=== PATIENT | male | born 1955 | race American Indian/Alaskan Native ===

== ENCOUNTER 2017-03-22 07:17 | Day surgery (SDC) | payer MEDICARE, MEDICAID ==
[2015-08-26 10:44] VITALS: PULSE 84
[2017-03-14 12:09] VITALS: BMI 16.9
--- NOTE | 2017-03-21 18:01 | HP ---
REASON FOR ADMISSION: Left heart cath, possible angioplasty, abnormal stress test. BRIEF CLINICAL HISTORY: This is a 62-year-old male with mechanical mitral valve replacement in 1993. Before, the patient had a pig valve in 1992, repeat is in 1993 [facility] mechanical valve, on Coumad in. Was complaining of dyspnea on exertion, chest pain on exertion so patient underwent a stress giovana t which was abnormal so patient was scheduled to have cardiac cath, possible angioplasty. PAST HISTORY: Significant for hypertension, hyperlipidemia, open heart surgery, status post pig valv e in 1992, status post mechanical valve in 1993, history of paroxysmal atrial fibrillation, history o f hypertension, history of open heart surgery. PREVIOUS CARDIAC WORKUP: As follows: The patient had a stress test ____ that was abnormal myocardia l perfusion study, partially reversible distal anteroseptal apical defect suspicious for ischemia, ej ection fraction 55%. When compared from the previous stress test 06/12/2014, previously noted fixed defect appears slightly improved and partially reversible in the current study. The patient had echo cardiography done on 02/14/2015 that shows normal aortic root, normal bioprosthetic mitral valve pros thesis, ejection fraction 40%, moderate tricuspid regurgitation, pulmonary insufficiency, mild pulmon milton insufficiency, trace mitral regurgitation, ejection fraction 40%. Whereas by stress test, ejecti on fraction reported 50%. The patient had a MUGA scan done on 07/30/2014 that shows ejection fractio n 57%. Prior to that, patient had echocardiography done in [facility] 06/12/2014, status post MV repair, ejection fraction reported at 35% to 40%. SOCIAL HISTORY: Denies smoking. Denies any history of alcohol abuse. History of some substance abu se in the past, used to smoke crack but quit it now. REVIEW OF SYSTEMS: As per HPI. CURRENT MEDICATIONS: The patient is taking Coumadin 5 mg, last dose on . Last dose of Loven ox day before yesterday. Verapamil 180 mg, potassium chloride 20 mEq, Lasix 20, enalapril 5 mg, digo joselyn 0.25, ____ and codeine 1 tablet daily. REVIEW OF SYSTEMS: As per HPI. PHYSICAL EXAMINATION: As follows: VITAL SIGNS: Temperature afebrile, heart rate ____, blood pressure 109/76. HEENT: PERRLA, intact. NECK: Supple. No carotid bruits. No thyromegaly. CHEST: Clear to auscultation. HEART: S1 and S2 regular. ABDOMEN: Soft. EXTREMITIES: Clubbing and cyanosis negative. BLOOD WORKUP: No recent blood workup is available. IMPRESSION: Abnormal stress test, history of open heart surgery twice, status post mitral valve repl acement in 1996, repeat ____ mechanical in 1993, history of substance abuse, paroxysmal atrial fibril lation, hypertension, hyperlipidemia, cardiomyopathy, abnormal stress test. RECOMMENDATION: We will do the cardiac catheterization. Further recommendation after the cardiac ca theterization. We will follow with you. We will load with aspirin and Plavix. Repeat the blood wor kup. Thank you, Dr. Rogers, for providing us the opportunity in taking care of patient. We will follow w ith you. Danuta Spears MD cc: [id number] TT: 03/21/2017 18:00:25 sn
[2017-03-22 07:49] LABS: ADD MANUAL DIFF? NO
[2017-03-22 07:55] LABS: BASO # 0.01 K/mm3 (0.0-2.0); BASO % 0.2 % (0.0-3.0); EOS # 0.2 (0.0-0.7); EOS % 3.6 % (1.5-5.0); GRAN % 53.2 % (50.0-68.0); HEMATOCRIT 39.5 % (42.0-52.0); LYMPH # 1.6 (1.2-3.4); LYMPH % 27.5 % (22.0-35.0); MEAN CELL VOLUME 95.4 fL (80.0-105.0); MEAN CORPUSCULAR HEMOGLOBIN 32.6 pg (25.0-35.0); MEAN CORPUSCULAR HGB CONC 34.2 g/dl (31.0-37.0); MEAN PLATELET VOLUME 9.3 fl (7.0-11.0); MONO # 0.9 (0.1-0.6); MONO % 15.5 % (1.0-6.0); PLATELET COUNT 248 10^3/uL (120.0-450.0); RED CELL DISTRIBUTION WIDTH 12.7 % (11.5-14.5); WHITE BLOOD COUNT 5.8 10^3/ul (4.5-11.0)
[2017-03-22 08:05] LABS: BLOOD UREA NITROGEN 17 mg/dL (7-21); CALCIUM 9.7 mg/dL (8.4-10.5); CARBON DIOXIDE 29 mmol/L (21-33); CHLORIDE 103 mmol/L (98-107); CHOLESTEROL 167 mg/dL (130-200); GFR AFRICAN-AMERICAN > 60; GLUCOSE,RANDOM 91 mg/dL (70-110); INR 1.07 (0.93-1.08); PARTIAL THROMBOPLASTIN TIME 28.4 Seconds (23.7-30.8); POTASSIUM 4.1 mmol/L (3.6-5.0); SODIUM 141 mmol/L (132-148)
[2017-03-22 08:20] VITALS: TEMP 98.4
[2017-03-22] MEDS ORDERED: Lidocaine 2% Inj (20ml) ONE (10:19)
[2017-03-22] MEDS ORDERED: Iohexol 350mgl/ml 50 ML ONE (10:25)
[2017-03-22] MEDS ORDERED: Nitroglycerin 50mg in D5W 50 MG/250 ML BOTTLE IV ONE (10:28)
[2017-03-22] MEDS ORDERED: Midazolam 2 MG/2 ML VIAL ONE (10:31)
[2017-03-22] MEDS ORDERED: Bacitracin 500 Units/gm Oint Foilpak UD TOP ONE (11:21)
[2017-03-22] MEDS ORDERED: Sodium Chloride 0.9% 1,000 ML IV SCH (11:30)
[2017-03-22 12:09] VITALS: RESP 22; O2SAT 99
[2017-03-22 13:54] VITALS: BP 132/70; PULSE 53
[2017-03-22] MEDS ORDERED: Bacitracin 500 Units/gm Oint Foilpak UD ONE (13:58)
--- NOTE | 2017-03-22 17:45 | CARD ---
APPROVED REPORT Procedure(s) performed: Left Heart Catheterization HISTORY The patient is a 62 year-old male with a history of : most recent EF: 50%. (EF Method: RADIONUCLIDE), previous diagnostic cath, hypertension , previous valve surgery (The previous valve surgery date was ), S/p MVR, Pig valve in 1992 , followed By [facility] in 1993, hx of A fib. on Coumadin. INDICATION The indication(s) include : positive stress test. CASE TECHNIQUE The patient was brought electively to the Cardiac Catheterization Laboratory in a fasting state and was prepped and draped in a sterile manner. The left wrist was infiltrated with 2% Lidocaine subcutaneous anesthesia. A 6 Fr Glidesheath (Radial) sheath was inserted into the left radial artery without difficulty. Coronary angiography was performed using coronary diagnostic catheters. The left coronary system was accessed and visualized with a Diagnostic ,5 Fr JL 4 catheter. The right coronary system was accessed and visualized with a Diagnostic ,5 Fr JR 4 catheter. The left ventricle was accessed and visualized with a 5 Fr Pigtail 145 (Angled) catheter. Left ventricular/Aortic Valve gradient assessed on pullback. Left ventriculogram was performed in SIDDIQUI projection. The patient tolerated the procedure well and there were no complications associated with the procedure. Vessel Analysis The patient's coronary anatomy is right dominant. The left main coronary artery is a large size vessel with intimal irregularities and without significant stenosis. The left main trifurcates to the left anterior descending, circumflex, and ramus. The left anterior descending artery is a large size vessel with diffuse calcification noted throughout this vessel and without significant stenosis. The first diagonal branch is a medium size vessel with diffuse calcification noted throughout this vessel and without significant stenosis. The circumflex artery is a medium size vessel with diffuse calcification noted throughout this vessel and without significant stenosis. There is a 55% stenosis in the very distal segment. The first obtuse marginal branch is a small size vessel with diffuse calcification noted throughout this vessel and without significant stenosis. The ramus intermedius artery is a medium size vessel with diffuse calcification noted throughout this vessel and without significant stenosis. The right coronary artery is a large size vessel with intimal irregularities and without significant stenosis. The right posterior descending artery is a medium size vessel with diffuse calcification noted throughout this vessel and without significant stenosis. The right posterolateral branch is a medium size vessel with diffuse calcification noted throughout this vessel and without significant stenosis. Left Ventricle The left ventricle is normal in size with normal contractility. There was no cardiomyopathy. The left ventricular ejection fraction is estimated to be 55%. The left ventricular end diastolic pressure is 15 mmHg. There was no gradient across the aortic valve upon pullback. Conclusion Non Obstructive CAD Limited ti Very Distal CX 55% Preserved LV Fx, EF-55%, EDP-15 mmof hg. Small Coronary Fistula noted Drainig Distal LAD and Distal R PDa to LV Cavity ( Hemodynamically in significant). Marjorie functioning [facility] [employer] Valve at Mitral position noted on Fluro. Recommendations Aggressive Medical TherapyCardiac Risk Reduction Program Coumadin 10 mg po today, 10 mg tomorrow followe by 5 mg daily and PT/INR on [place] with Dr. Rogers Lovenox 50 mg S/Q twice daily for four doses starting from 8:00 am tomorrow Arrangement has been made in Heme clinic for Sq Inj of Lovenox. CC; Drs. Rogers/ Aide
[2017-03-23] MEDS ORDERED: Enoxaparin 60 mg Syringe SC SCH (08:00)
== END 2017-03-22 15:25 | disposition home or self-care (01) ==
LOC: CATH 07:17
PROVIDERS: ATTEND Internal Medicine Cardiovascular Disease
DX: I25.10 Atherosclerotic heart disease of native coronary artery without angina pectoris (principal); R94.39 Abnormal result of other cardiovascular function study; E78.5 Hyperlipidemia, unspecified; I10 Essential (primary) hypertension; I48.0 Paroxysmal atrial fibrillation; I34.0 Nonrheumatic mitral (valve) insufficiency; Z79.01 Long term (current) use of anticoagulants; Z95.2 Presence of prosthetic heart valve; Z87.898 Personal history of other specified conditions
CPT/HCPCS: 36415; 80048; 80061; 85025; 85610; 85730; 86850; 86900; 93458; 99152; C1769; C1887 ×2; J1644 ×2; J2250; J3010; J7040 ×2; Q9967 ×2

== ENCOUNTER 2017-04-25 14:14 | Emergency (ER) | payer MEDICARE, MEDICAID ==
[2017-04-25 14:15] VITALS: PULSE 84
[2017-04-25 14:33] VITALS: RESP 18
[2017-04-25 14:42] VITALS: BMI 17.0
--- NOTE | 2017-04-25 14:51 | ED PDOC ---
Arrival/HPI - General Chief Complaint: Chest Pain Time Seen by Provider: 04/25/17 14:28 Historian: Patient - History of Present Illness Narrative History of Present Illness (Text): 04/25/17 14:50 Mr. Gonzales is a 62 year old male with past medical history of mechanical valve replacement, Hypertension, hyperlipidemia, paroxysmal atrial fibrillation, CABG in 1992 and 1993 who presents with chest pain starting this morning. Patient reports he began experiencing a sharp chest pain starting at his left shoulder and radiating down into his left chest. He denies any radiation of the pain through to his back. Patient states the pain is sharp, stabbing pain, constant, 9/10. He denies nausea, vomiting, shortness of breath. Pt reports the pain is worse with laying on his left side. Of note the patient has had a abnormal stress test on 03/06/[address] [facility]. 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 He sought a 2nd opinion and had a heart cath this past month which was negative for acute changes. Past Medical History - Provider Review Nursing Documentation Reviewed: Yes - Infectious Disease Hx of Infectious Diseases: None - Tetanus Immunization Tetanus Immunization: Unknown - Cardiac Hx Pacemaker: No - Pulmonary Hx Respiratory Disorders: Yes (SMOKES 1993 QUIT) Other/Comment: ex smoker - Neurological Hx Paralysis: No - HEENT Hx HEENT Disorder: No (WEARS RX GLASSES) - Renal Hx Renal Disorder: No - Endocrine/Metabolic Hx Endocrine Disorders: No - Hematological/Oncological Hx Blood Transfusions: Yes Hx Blood Transfusion Reaction: Yes (HEP C) - Integumentary Hx Dermatological Disorder: No (SCAR MID CHEST FROM HEART SURGERY) - Musculoskeletal/Rheumatological Hx Musculoskeletal Disorders: Yes (ANKLE SPRAIN,FX FINGER) - Gastrointestinal Hx Gastrointestinal Disorders: Yes (ANAL CA) Hx Pancreatitis: Yes - Genitourinary/Gynecological Hx Genitourinary Disorders: No - Psychiatric Hx Emotional Abuse: No Hx Physical Abuse: No Hx Substance Use: Yes (COCAINE USE .SNORT QUIT 1993) - Surgical History Hx Coronary Artery Bypass Graft: Yes - Anesthesia Hx Anesthesia Reactions: No Hx Malignant Hyperthermia: No - Suicidal Assessment Feels Threatened In Home Enviroment: No Family/Social History - Physician Review Nursing Documentation Reviewed: Yes Family/Social History: Unknown Family HX Smoking Status: Former Smoker Hx Alcohol Use: Yes (ALCOHOLIC .QUIT 1993) Hx Substance Use: Yes (COCAINE USE .SNORT QUIT 1993) Hx Substance Use Treatment: No Allergies/Home Meds Allergies/Adverse Reactions: Allergies No Known Allergies Allergy (Verified 04/25/17 15:08) Home Medications: Home Meds Medication Instructions Recorded Confirmed Verapamil [Calan SR Tab] 180 mg PO DAILY 04/02/12 03/22/17 Acetaminophen/Oxycodone Hydr 1 tab PO Q6H PRN 02/28/14 03/22/17 [Percocet 10/325 mg Tab] Digoxin [Lanoxin] 0.25 mg PO DAILY 03/14/17 03/22/17 Enalapril Maleate [Vasotec] 5 mg PO DAILY 03/14/17 03/22/17 Furosemide [Lasix] 20 mg PO DAILY 03/14/17 03/22/17 Potassium Chloride [Klor-Con M20] 20 meq PO DAILY 03/14/17 03/22/17 Warfarin [Coumadin] 5 mg PO DAILY 03/14/17 03/22/17 Enoxaparin [Lovenox] 60 mg SQ Q12 03/22/17 03/22/17 Review of Systems - Physician Review All systems were reviewed & negative as marked: Yes - Review of Systems Respiratory: absent: SOB, Cough Cardiovascular: Chest Pain. absent: Palpitations, Edema, Calf Pain, Orthopnea, Syncope Gastrointestinal: absent: Abdominal Pain Physical Exam Vital Signs Reviewed: Yes Vital Signs Temp Pulse Resp BP Pulse Ox 04/25/17 17:19 98.2 F 59 L 18 138/73 100 04/25/17 14:15 98.1 F 54 L 18 127/68 97 Temperature: Afebrile Blood Pressure: Normal Respiratory Rate: Normal Appearance: Positive for: Well-Appearing Pain Distress: None Mental Status: Positive for: Alert and Oriented X 3 - Systems Exam Head: Present: Atraumatic, Normocephalic Pupils: Present: PERRL Extroacular Muscles: Present: EOMI Conjunctiva: Present: Icteric Mouth: Present: Moist Mucous Membranes Neck: Present: Normal Range of Motion Respiratory/Chest: Present: Clear to Auscultation, Good Air Exchange, Other ( midline scar 2/2 cabg). No: Respiratory Distress, Accessory Muscle Use Cardiovascular: Present: Regular Rate and Rhythm, Murmurs (short diastolic murmur), Normal S1, S2 Abdomen: Present: Normal Bowel Sounds. No: Tenderness, Distention, Peritoneal Signs Upper Extremity: Present: Normal Inspection. No: Cyanosis, Edema Lower Extremity: Present: Normal Inspection. No: Edema Neurological: Present: GCS=15, CN II-XII Intact, Speech Normal Skin: Present: Warm, Dry, Normal Color. No: Rashes Psychiatric: Present: Alert, Oriented x 3, Normal Insight, Normal Concentration Medical Decision Making ED Course and Treatment: 04/25/17 15:06 Impression: Mr. Gonzales is a 62 year old male with an extensive cardiac history who presents with chest pain on going for the past 8 hours. Differential Diagnosis included but are not limited to: - Musculoskeletal strain - Atypical chest pain Plan: - CBC, CMP, Cardiac enzymes - CXR, EKG - oxycodone - Reassess and disposition Progress Notes: EKG: Ordered, reviewed, and independently interpreted the EKG. Rate : 53BPM Rhythm : NSR Interpretation : No ST-segment elevations or depressions, no T-wave inversions, normal intervals. Chest x-ray COMPARISON:08/20/2015 FINDINGS: LUNGS:No active pulmonary disease. PLEURA:No significant pleural effusion identified, no pneumothorax apparent. CARDIOVASCULAR:Normal. OSSEOUS STRUCTURES:Sternal wires VISUALIZED UPPER ABDOMEN:Normal. OTHER FINDINGS:None. IMPRESSION:No active disease. 04/25/17 16:13 - Discussed case with Dr. Rogers and she recommended pain medication and if chest pain resolved agreeable to discharge home with follow up in office - Lab Interpretations Lab Results: 04/25/17 14:39 04/25/17 14:39 Lab Results 04/25/17 14:39: PT 27.5 H, INR 2.55 H, APTT 39.2 H 04/25/17 14:39: Sodium 138, Potassium 4.0, Chloride 101, Carbon Dioxide 31, Anion Gap 10, BUN 13, Creatinine 0.9, Est GFR ( Amer) > 60, Est GFR (Non- Af Amer) > 60, Random Glucose 84, Calcium 9.1, Magnesium 1.6 L, Total Bilirubin 0.9, AST 38, ALT 33, Alkaline Phosphatase 54, Lactate Dehydrogenase 896 H, Total Creatine Kinase 150, Troponin I < 0.01, NT-Pro-B Natriuret Pep 492 H, Total Protein 7.5, Albumin 4.0, Globulin 3.5, Albumin/Globulin Ratio 1.1 04/25/17 14:39: WBC 6.7, RBC 3.75, Hgb 12.0 L, Hct 35.6 L, MCV 94.9, MCH 32.0, MCHC 33.7, RDW 12.6, Plt Count 221, MPV 9.0, Gran % 56.0, Lymph % (Auto) 27.1, [place] % (Auto) 12.8 H, Eos % (Auto) 3.9, Baso % (Auto) 0.2, Gran # 3.73, Lymph # 1.8, [place] # 0.9 H, Eos # 0.3, Baso # 0.01 - RAD Interpretation Radiology Orders: 04/25/17 14:38 CHEST PORTABLE [RAD] Stat Machine Folder: Radiologist - EKG Interpretation Interpreted by ED Physician: Yes Type: 12 lead EKG - Medication Orders Current Medication Orders: Discontinued Medications Aspirin (Aspirin) 325 mg PO STAT STA Stop: 04/25/17 14:38 Last Admin: 04/25/17 15:45 Dose: 325 mg Oxycodone HCl (Oxycodone Immediate Release Tab) 5 mg PO STAT STA Stop: 04/25/17 16:11 Last Admin: 04/25/17 16:24 Dose: 5 mg - PA / TRAFFIC COUNTER / Resident Statement MD/DO has reviewed & agrees with the documentation as recorded. MD/DO has examined the patient and agrees with the treatment plan. Disposition/Present on Arrival - Present on Arrival Any Indicators Present on Arrival: No History of DVT/PE: No History of Uncontrolled Diabetes: No Urinary Catheter: No History Surgical Site Infection Following: None - Disposition Have Diagnosis and Disposition been Completed?: Yes Diagnosis: Musculoskeletal strain Disposition Time: 17:27 Patient Plan: Discharge Condition: GOOD Additional Instructions: Mr. Gonzales, thank you for letting us take care of you today. Your provider was Dr. Banks. You were treated for musculoskeletal strain. The emergency medical care you received today was directed at your acute symptoms. If you were prescribed any medication, please fill it and take as directed. It may take several days for your symptoms to resolve. Return to the Emergency Department if your symptoms worsen, do not improve, or if you have any other problems. Please contact your doctor or call one of the physicians/clinics you have been referred to that are listed on the Patient Visit Information form that is included in your discharge packet. Bring any paperwork you were given at discharge with you along with any medications you are taking to your follow up visit. Our treatment cannot replace ongoing medical care by a primary care provider (PCP) outside of the emergency department. Thank you for allowing the [facility] team to be part of your care today. Follow up with primary care physician Referrals: [facility] Profile Req, [Non-Staff] - Follow up with primary
[2017-04-25 14:55] LABS: BASO # 0.01 K/mm3 (0.0-2.0); BASO % 0.2 % (0.0-3.0); EOS # 0.3 (0.0-0.7); EOS % 3.9 % (1.5-5.0); GRAN # 3.73 (1.4-6.5); LYMPH # 1.8 (1.2-3.4); LYMPH % 27.1 % (22.0-35.0); MEAN CELL VOLUME 94.9 fL (80.0-105.0); MEAN CORPUSCULAR HGB CONC 33.7 g/dl (31.0-37.0); MONO # 0.9 (0.1-0.6); MONO % 12.8 % (1.0-6.0); PLATELET COUNT 221 10^3/uL (120.0-450.0); RBC 3.75 10^6/uL (3.5-6.1); RED CELL DISTRIBUTION WIDTH 12.6 % (11.5-14.5); WHITE BLOOD COUNT 6.7 10^3/ul (4.5-11.0)
[2017-04-25 15:05] LABS: INR 2.55 (0.93-1.08); PARTIAL THROMBOPLASTIN TIME 39.2 Seconds (23.7-30.8); PROTHROMBIN TIME 27.5 Seconds (9.9-11.8)
[2017-04-25 15:06] LABS: ALB/GLOB RATIO 1.1 (1.1-1.8); ALT/SGPT 33 U/L (7-56); AST/SGOT 38 U/L (15-59); BLOOD UREA NITROGEN 13 mg/dL (7-21); CALCIUM 9.1 mg/dL (8.4-10.5); GFR AFRICAN-AMERICAN > 60; GFR NON-AFRICAN AMERICAN > 60; MAGNESIUM 1.6 mg/dL (1.7-2.2)
--- NOTE | 2017-04-25 15:15 | RAD ---
HISTORY: chest pain COMPARISON: 08/20/2015 FINDINGS: LUNGS: No active pulmonary disease. PLEURA: No significant pleural effusion identified, no pneumothorax apparent. CARDIOVASCULAR: Normal. OSSEOUS STRUCTURES: Sternal wires VISUALIZED UPPER ABDOMEN: Normal. OTHER FINDINGS: None. IMPRESSION: No active disease.
[2017-04-25 15:17] LABS: B-TYPE NATRIURETIC PEPTIDE 492 pg/mL (0-450)
[2017-04-25 15:18] LABS: TROPONIN I < 0.01 ng/mL
[2017-04-25] MEDS ORDERED: oxyCODONE 5 mg Immediate Release Tab PO STA (16:10)
--- NOTE | 2017-04-25 17:20 | CARD ---
APPROVED REPORT EKG Measurement Heart [id number] MD 160P [id number] <Conclusion> Sinus bradycardia Otherwise normal ECG
[2017-04-25 17:23] VITALS: BP 138/73; TEMP 98.2
[2017-04-25 17:35] VITALS: PULSE 58; O2SAT 98
== END 2017-04-25 17:36 | disposition home or self-care (01) ==
LOC: ED 14:14
DX: S29.011A Strain of muscle and tendon of front wall of thorax, initial encounter (principal); X58.XXXA Exposure to other specified factors, initial encounter; E78.5 Hyperlipidemia, unspecified; I10 Essential (primary) hypertension; I48.0 Paroxysmal atrial fibrillation

== ENCOUNTER 2017-11-18 10:00 | Emergency (ER) | payer MEDICARE, MEDICAID ==
[2017-11-18 10:01] VITALS: PULSE 84
[2017-11-18 11:52] VITALS: BP 130/74; PULSE 73; RESP 18; TEMP 98.2; O2SAT 100; BMI 17.1
--- NOTE | 2017-11-18 12:22 | ED PDOC ---
Arrival/HPI - General Chief Complaint: Lower Extremity Problem/Injury Time Seen by Provider: 11/18/17 12:05 Historian: Patient - History of Present Illness Narrative History of Present Illness (Text): 11/18/17 12:19 62 year old male, with past medical history of mechanical valve replacement, hypertension, hyperlipidemia, paroxysmal A-fib, and CABG, presents to the Emergency department for evaluation of right foot s/p trauma this morning. Patient informs twisting his foot following rolled inversion and injury to right foot. Patient is worried that mechanical hardware in his foot may have been affected and requests medical evaluation. Patient denies any discomfort or bruising to his right foot. Patient denies any other somatic complaints. Patient denies any fever, chills, nausea, vomiting, diarrhea, abdominal pain, chest pain, shortness of breath or any other complaints. PMD: Dr. Rogers Time/Duration: Prior to Arrival Symptom Onset: Gradual Symptom Course: Unchanged Activities at Onset: Light Context: Home Past Medical History - Provider Review Nursing Documentation Reviewed: Yes - Infectious Disease Hx of Infectious Diseases: None - Tetanus Immunization Tetanus Immunization: Unknown - Cardiac Hx Congestive Heart Failure: Yes Hx Pacemaker: No - Pulmonary Hx Respiratory Disorders: Yes (SMOKES 1993 QUIT) Other/Comment: ex smoker - Neurological Hx Paralysis: No - HEENT Hx HEENT Disorder: No (WEARS RX GLASSES) - Renal Hx Renal Disorder: No - Endocrine/Metabolic Hx Endocrine Disorders: No - Hematological/Oncological Hx Blood Transfusions: Yes Hx Blood Transfusion Reaction: Yes (HEP C) - Integumentary Hx Dermatological Disorder: No (SCAR MID CHEST FROM HEART SURGERY) - Musculoskeletal/Rheumatological Hx Musculoskeletal Disorders: Yes (ANKLE SPRAIN,FX FINGER) - Gastrointestinal Hx Gastrointestinal Disorders: Yes (ANAL CA) Hx Pancreatitis: Yes - Genitourinary/Gynecological Hx Genitourinary Disorders: No - Psychiatric Hx Emotional Abuse: No Hx Physical Abuse: No Hx Substance Use: Yes (COCAINE USE .SNORT QUIT 1993) - Surgical History Hx Coronary Artery Bypass Graft: Yes Other/Comment: Abdias placed to Rt. lower extremity/foot. - Anesthesia Hx Anesthesia Reactions: No Hx Malignant Hyperthermia: No - Suicidal Assessment Feels Threatened In Home Enviroment: No Family/Social History - Physician Review Nursing Documentation Reviewed: Yes Family/Social History: Unknown Family HX Smoking Status: Former Smoker Hx Alcohol Use: Yes (ALCOHOLIC .QUIT 1993) Hx Substance Use: Yes (COCAINE USE .SNORT QUIT 1993) Hx Substance Use Treatment: No Allergies/Home Meds Allergies/Adverse Reactions: Allergies No Known Allergies Allergy (Verified 11/18/17 11:56) Home Medications: Home Meds Medication Instructions Recorded Confirmed Verapamil [Calan SR Tab] 180 mg PO DAILY 04/02/12 11/18/17 Acetaminophen/Oxycodone Hydr 1 tab PO Q6H PRN 02/28/14 11/18/17 [Percocet 10/325 mg Tab] Digoxin [Lanoxin] 0.25 mg PO DAILY 03/14/17 11/18/17 Enalapril Maleate [Vasotec] 5 mg PO DAILY 03/14/17 11/18/17 Furosemide [Lasix] 20 mg PO DAILY 03/14/17 11/18/17 Potassium Chloride [Klor-Con M20] 20 meq PO DAILY 03/14/17 11/18/17 Warfarin [Coumadin] 5 mg PO DAILY 03/14/17 11/18/17 Enoxaparin [Lovenox] 60 mg SQ Q12 03/22/17 11/18/17 Review of Systems - Physician Review All systems were reviewed & negative as marked: Yes - Review of Systems Constitutional: Normal. absent: Fevers Eyes: Normal ENT: Normal Respiratory: Normal. absent: SOB Cardiovascular: Normal. absent: Chest Pain Gastrointestinal: Normal. absent: Abdominal Pain, Diarrhea, Nausea, Vomiting Genitourinary Male: Normal Musculoskeletal: Other (evaluation of right foot s/p trauma) Skin: Normal Neurological: Normal Endocrine: Normal Hemo/Lymphatic: Normal Psychiatric: Normal Physical Exam Vital Signs Reviewed: Yes Vital Signs Temp Pulse Resp BP Pulse Ox 11/18/17 11:11 98.2 F 73 18 130/74 100 Temperature: Afebrile Blood Pressure: Normal Pulse: Regular Respiratory Rate: Normal Appearance: Positive for: Well-Appearing, Non-Toxic, Comfortable Pain Distress: None Mental Status: Positive for: Alert and Oriented X 3 - Systems Exam Head: Present: Atraumatic, Normocephalic Pupils: Present: PERRL Extroacular Muscles: Present: EOMI Conjunctiva: Present: Normal Neck: Present: Normal Range of Motion Respiratory/Chest: Present: Clear to Auscultation, Good Air Exchange. No: Respiratory Distress, Accessory Muscle Use Cardiovascular: Present: Regular Rate and Rhythm, Normal S1, S2. No: Murmurs Abdomen: Present: Normal Bowel Sounds. No: Tenderness, Distention, Peritoneal Signs Back: Present: Normal Inspection Upper Extremity: Present: Normal Inspection. No: Cyanosis, Edema Lower Extremity: Present: Normal Inspection, NORMAL PULSES, Normal ROM. No: Edema, Cyanosis, Tenderness, Swelling, Erythema, Deformity Neurological: Present: GCS=15, CN II-XII Intact, Speech Normal Skin: Present: Warm, Dry, Normal Color. No: Rashes, Abrasion Psychiatric: Present: Alert, Oriented x 3, Normal Insight, Normal Concentration Medical Decision Making ED Course and Treatment: 11/18/17 12:24 Impression: 62 year old male presents to the Emergency department for evaluation of right foot. Plan: -- X-ray right foot -- Reassess and disposition Progress Notes: 11/18/17 14:00 X-ray of right foot reviewed, shows negative findings. Will discharge patient home with instructions. - RAD Interpretation Radiology Orders: 11/18/17 12:07 FOOT RIGHT 3 VIEWS ROUTINE [RAD] Stat - PA / PROGRAM ASSISTANT / Resident Statement MD/DO has reviewed & agrees with the documentation as recorded. - Scribe Statement The provider has reviewed the documentation as recorded by the Scribe Trinity Moulton. All medical record entries made by the Scribe were at my direction and personally dictated by me. I have reviewed the chart and agree that the record accurately reflects my personal performance of the history, physical exam, medical decision making, and the department course for this patient. I have also personally directed, reviewed, and agree with the discharge instructions and disposition. Disposition/Present on Arrival - Present on Arrival Any Indicators Present on Arrival: No History of DVT/PE: No History of Uncontrolled Diabetes: No Urinary Catheter: No History of Decub. Ulcer: No History Surgical Site Infection Following: None - Disposition Have Diagnosis and Disposition been Completed?: Yes Diagnosis: Foot sprain Disposition: HOME/ ROUTINE Disposition Time: 13:57 Patient Plan: Discharge Patient Problems: Current Active Problems Problem Status Onset Foot sprain Acute Condition: GOOD Discharge Instructions (ExitCare): Foot Sprain (DC) Additional Instructions: Mr Gonzales- So sorry this took so long today. Xray shows the hardware is where it belongs and there is no new fracture. Tylenol is ok for pain. Return to us if worse or new problems. Follow up with your doctor next week. Best- Dr. John Thomas Forms: [employer] ([place])
--- NOTE | 2017-11-18 14:37 | RAD ---
PROCEDURE: Right Foot Radiographs. HISTORY: inversion injury, previous surgery COMPARISON: Comparison made with radiographs right foot dated 08/14/2015 FINDINGS: BONES: Re- demonstrated is ORIF changes distal aspect right 5th metatarsal with in situ fixation plate. Localized well-circumscribed defect within the lateral margin of the distal aspect of the metatarsal of uncertain etiology though could be due to chronic resorption changes. Hardware appears intact without evidence of loosening or infection. . No evidence of acute displaced fracture nor dislocation. Osseous structures otherwise appear intact. JOINTS: Degenerative changes PIP joint 2nd digit again noted. Hammertoe deformities of the 3rd and 4th digits preclude complete/adequate evaluation of the distal phalanges SOFT TISSUES: Mild vascular calcifications. OTHER FINDINGS: None. IMPRESSION: No evidence of acute displaced fracture nor dislocation. ORIF changes distal right 5th metatarsal. There is a well-circumscribed corticated defect along the lateral margin distal aspect of the 5th metatarsal subjacent to the fixation plate which could be due to chronic resorption changes. Clinical correlation recommended. No evidence of acute displaced fracture nor dislocation. DJD PIP joint 2nd digit.
== END 2017-11-18 14:37 | disposition home or self-care (01) ==
LOC: ED 10:00
DX: S93.601A Unspecified sprain of right foot, initial encounter (principal); W50.2XXA Accidental twist by another person, initial encounter; Y92.009 Unspecified place in unspecified non-institutional (private) residence as the place of occurrence of the external cause; I48.0 Paroxysmal atrial fibrillation; E78.5 Hyperlipidemia, unspecified; I10 Essential (primary) hypertension; Z87.891 Personal history of nicotine dependence

== ENCOUNTER 2018-09-03 11:33 | Emergency (ER) | payer MEDICARE, MEDICAID ==
[2018-09-03 11:34] VITALS: PULSE 84
[2018-09-03 12:15] VITALS: TEMP 98.1; BMI 17.2
--- NOTE | 2018-09-03 12:23 | ED PDOC ---
Arrival/HPI - General Chief Complaint: Lower Extremity Problem/Injury Historian: Patient - History of Present Illness Narrative History of Present Illness (Text): 09/03/18 12:20 63 y/o male, nkda, c/o rt. lateral ankle/foot pain s/p inversion injury x 2 d ays. Pt. stated that he was walking, accidentally inversion twisted the rt. foot and ankle, request to have xray, able to walk and bear weight, no numbness or tingling, no rash, no night sweat, no other medical or psychological complaints. Past Medical History - Provider Review Nursing Documentation Reviewed: Yes - Infectious Disease Hx of Infectious Diseases: None - Tetanus Immunization Tetanus Immunization: Unknown - Cardiac Hx Congestive Heart Failure: Yes Hx Pacemaker: No - Pulmonary Hx Respiratory Disorders: Yes (SMOKES 1993 QUIT) Other/Comment: ex smoker - Neurological Hx Paralysis: No - HEENT Hx HEENT Disorder: No (WEARS RX GLASSES) - Renal Hx Renal Disorder: No - Endocrine/Metabolic Hx Endocrine Disorders: No - Hematological/Oncological Hx Blood Transfusions: Yes Hx Blood Transfusion Reaction: Yes (HEP C) - Integumentary Hx Dermatological Disorder: No (SCAR MID CHEST FROM HEART SURGERY) - Musculoskeletal/Rheumatological Hx Musculoskeletal Disorders: Yes (ANKLE SPRAIN,FX FINGER) - Gastrointestinal Hx Gastrointestinal Disorders: Yes (ANAL CA) Hx Pancreatitis: Yes - Genitourinary/Gynecological Hx Genitourinary Disorders: No - Psychiatric Hx Emotional Abuse: No Hx Physical Abuse: No 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 lower extremity/foot. - Anesthesia Hx Anesthesia Reactions: No Hx Malignant Hyperthermia: No - Suicidal Assessment Feels Threatened In Home Enviroment: No Family/Social History - Physician Review Nursing Documentation Reviewed: Yes Family/Social History: Unknown Family HX Smoking Status: Former Smoker Hx Alcohol Use: Yes (ALCOHOLIC .QUIT 1993) Hx Substance Use: Yes (COCAINE USE .SNORT QUIT 1993) Hx Substance Use Treatment: No Allergies/Home Meds Allergies/Adverse Reactions: Allergies No Known Allergies Allergy (Verified 09/03/18 12:18) Home Medications: Home Meds Medication Instructions Recorded Confirmed Verapamil [Calan SR Tab] 180 mg PO DAILY 04/02/12 11/18/17 Acetaminophen/Oxycodone Hydr 1 tab PO Q6H PRN 02/28/14 11/18/17 [Percocet 10/325 mg Tab] Digoxin [Lanoxin] 0.25 mg PO DAILY 03/14/17 11/18/17 Enalapril Maleate [Vasotec] 5 mg PO DAILY 03/14/17 11/18/17 Furosemide [Lasix] 20 mg PO DAILY 03/14/17 11/18/17 Potassium Chloride [Klor-Con M20] 20 meq PO DAILY 03/14/17 11/18/17 Warfarin [Coumadin] 5 mg PO DAILY 03/14/17 11/18/17 Enoxaparin [Lovenox] 60 mg SQ Q12 03/22/17 11/18/17 Review of Systems - Review of Systems Constitutional: absent: Fatigue, Fevers Eyes: absent: Vision Changes ENT: absent: Hearing Changes Respiratory: absent: SOB, Cough Cardiovascular: absent: Chest Pain Gastrointestinal: absent: Abdominal Pain, Nausea, Vomiting Musculoskeletal: Arthralgias, Myalgias. absent: Back Pain Skin: absent: Rash, Pruritis Neurological: absent: Headache, Dizziness Psychiatric: absent: Anxiety, Depression, Suicidal Ideation Physical Exam Vital Signs Reviewed: Yes Vital Signs Temp Pulse Resp BP Pulse Ox 09/03/18 12:13 98.1 F 75 17 154/119 H 99 Temperature: Afebrile Blood Pressure: Hypertensive Pulse: Regular Respiratory Rate: Normal Appearance: Positive for: Well-Appearing, Non-Toxic, Comfortable Pain Distress: Mild Mental Status: Positive for: Alert and Oriented X 3 - Systems Exam Head: Present: Atraumatic, Normocephalic Pupils: Present: PERRL Extroacular Muscles: Present: EOMI Conjunctiva: Present: Normal Mouth: Present: Moist Mucous Membranes Neck: Present: Normal Range of Motion Respiratory/Chest: Present: Clear to Auscultation, Good Air Exchange. No: Respiratory Distress, Accessory Muscle Use Cardiovascular: Present: Regular Rate and Rhythm, Normal S1, S2. No: Murmurs Abdomen: No: Tenderness, Distention, Peritoneal Signs Back: Present: Normal Inspection Upper Extremity: Present: Normal Inspection. No: Cyanosis, Edema Lower Extremity: Present: Normal Inspection, Other (Rt. ankle/foot: +ttp on the lateral foot mildly, no swelling, negative lizandro and steven signs, FROM without limitation, sensation intact, motor 5/5, +DPPT pulses, capillary refill < 2 seconds, neurovascular intact. ). No: Edema Neurological: Present: GCS=15, CN II-XII Intact, Speech Normal Skin: Present: Warm, Dry, Normal Color. No: Rashes Psychiatric: Present: Alert, Oriented x 3, Normal Insight, Normal Concentration Medical Decision Making ED Course and Treatment: 09/03/18 12:22 -Xrays -Tylenol -Observe and reassess 09/03/18 13:32 -Rt. foot xray ER wet read: no fracture or dislocation. -Rt. ankle xray ER wet read: no fracture or dislocation. -Cliff wrap applied with neurovascular intact, refused crutches but request cane, ordered for him. -pt. feels better, will discharge home. -Discharge home with tylenol, cliff wrap, cane, follow up with your own pmd and orthopedic/plastic welder within 2 days, return to the ER for any new or worsening signs or symptoms. - RAD Interpretation Radiology Orders: 09/03/18 12:18 ANKLE RIGHT 3 VIEWS ROUTINE [RAD] Stat FOOT RIGHT 3 VIEWS ROUTINE [RAD] Stat -Rt. foot xray Date of service: 09/03/2018 PROCEDURE: Right Foot Radiographs. HISTORY: inversion injury COMPARISON: 11/18/2017 FINDINGS: BONES: No acute fracture. Previous internal fixation 5th metatarsal JOINTS: Normal. SOFT TISSUES: Normal. OTHER FINDINGS: None. IMPRESSION: No acute fracture ------ ------ -Rt. ankle xray Date of service: 09/03/2018 PROCEDURE: Right Ankle Radiographs. HISTORY: inversion injury COMPARISON: None available. FINDINGS: BONES: Normal. No fracture. JOINTS: Normal. No osteoarthritis. Ankle mortise maintained. Talar dome intact SOFT TISSUES: Normal. OTHER FINDINGS: None. IMPRESSION: Normal right ankle radiographs. Liquor Runner: Radiologist - Medication Orders Current Medication Orders: Acetaminophen (Tylenol 325mg Tab) 650 mg PO STAT STA Stop: 09/03/18 12:19 - PA / HAT BRUSHER MACHINE / Resident Statement MD/DO has reviewed & agrees with the documentation as recorded. Disposition/Present on Arrival - Present on Arrival Any Indicators Present on Arrival: No History of DVT/PE: No History of Uncontrolled Diabetes: No Urinary Catheter: No History of Decub. Ulcer: No History Surgical Site Infection Following: None - Disposition Have Diagnosis and Disposition been Completed?: Yes Diagnosis: Foot injury, Foot pain Disposition: HOME/ ROUTINE Disposition Time: 13:45 Patient Plan: Discharge Patient Problems: Current Active Problems Problem Status Onset Foot injury Acute Foot pain Acute Condition: GOOD Additional Instructions: -Discharge home with tylenol, cliff wrap, cane, follow up with your own pmd and orthopedic/plastic welder within 2 days, return to the ER for any new or worsening signs or symptoms. Prescriptions: Acetaminophen [Pain Reliever] 500 mg PO QID PRN #30 tablet PRN Reason: Other Referrals: Ernesto Rogers MD [Primary Care Provider] - Follow up with primary Buck Harrison DPM [Staff Provider] - Follow up with primary Tylor Sim III, MD [Medical Doctor] - Follow up with primary [facility] [place] - Follow up with primary Forms: [employer] (Lithuanian), WORK NOTE
--- NOTE | 2018-09-03 13:45 | RAD ---
Date of service: 09/03/2018 PROCEDURE: Right Foot Radiographs. HISTORY: inversion injury COMPARISON: 11/18/2017 FINDINGS: BONES: No acute fracture. Previous internal fixation 5th metatarsal JOINTS: Normal. SOFT TISSUES: Normal. OTHER FINDINGS: None. IMPRESSION: No acute fracture
--- NOTE | 2018-09-03 13:46 | RAD ---
Date of service: 09/03/2018 PROCEDURE: Right Ankle Radiographs. HISTORY: inversion injury COMPARISON: None available. FINDINGS: BONES: Normal. No fracture. JOINTS: Normal. No osteoarthritis. Ankle mortise maintained. Talar dome intact SOFT TISSUES: Normal. OTHER FINDINGS: None. IMPRESSION: Normal right ankle radiographs.
[2018-09-03 13:59] VITALS: BP 129/68; PULSE 69; RESP 18; O2SAT 100
== END 2018-09-03 14:20 | disposition home or self-care (01) ==
LOC: ED 11:33
DX: S99.921A Unspecified injury of right foot, initial encounter (principal); X50.1XXA Overexertion from prolonged static or awkward postures, initial encounter; Y93.01 Activity, walking, marching and hiking; M79.671 Pain in right foot; I50.9 Heart failure, unspecified

== ENCOUNTER 2018-12-12 10:33 | Emergency (ER) | payer MEDICARE, MEDICAID | END 2018-12-12 15:05 | disposition home or self-care (01) | LOC: ED 10:33 ==

== ENCOUNTER 2019-01-30 09:09 | Observation (INO) | payer MEDICARE, MEDICAID ==
[2019-01-30 09:09] VITALS: BMI 17.1
--- NOTE | 2019-01-30 09:52 | ED PDOC ---
Arrival/HPI - General Chief Complaint: Back Pain Historian: Patient - History of Present Illness Narrative History of Present Illness (Text): 01/30/19 09:52 63 y/o male, pmh including htn/hld/a.fibb on coumadin/mechanical heart valve 1993 and pig valve 1992, nkda, c/o rt. lower back and rt. lower quadrant abdominal pain x 4 days with no fall or trauma. Pt. stated that he woke up with the rt. lower back pain and radiating to the RLQ region, no tearing sensation, no nausea/vomiting, no diarrhea, no chest pain or palpitation, no fever or chills, no headache or night sweat, no rash, no other medical or psychological complaints. Past Medical History - Provider Review Nursing Documentation Reviewed: Yes - Infectious Disease Hx of Infectious Diseases: None - Tetanus Immunization Tetanus Immunization: Unknown - Cardiac Hx Cardiac Disorders: Yes Hx Congestive Heart Failure: Yes - Pulmonary Hx Respiratory Disorders: Yes Other/Comment: ex smoker - Neurological Hx Paralysis: No - HEENT Hx HEENT Disorder: (WEARS RX GLASSES) - Renal Hx Renal Disorder: No - Endocrine/Metabolic Hx Endocrine Disorders: No - Hematological/Oncological Hx Blood Disorders: Yes Hx Blood Transfusions: Yes Hx Blood Transfusion Reaction: Yes Hx Cancer: Yes Hx Hepatitis C: Yes - Integumentary Hx Dermatological Disorder: No - Musculoskeletal/Rheumatological Hx Musculoskeletal Disorders: Yes (ANKLE SPRAIN) Hx Fractures: Yes - Gastrointestinal Hx Gastrointestinal Disorders: Yes Hx Pancreatitis: Yes - Genitourinary/Gynecological Hx Genitourinary Disorders: No - Psychiatric Hx Psychophysiologic Disorder: No Hx Substance Use: Yes (COCAINE QUIT) - Surgical History Hx Coronary Artery Bypass Graft: Yes Hx Orthopedic Surgery: Yes Hx Valve Replacement: Yes Other/Comment: Abdias placed to Rt. lower extremity/foot. - Anesthesia Hx Anesthesia Reactions: No Hx Malignant Hyperthermia: No - Suicidal Assessment Feels Threatened In Home Enviroment: No Family/Social History - Physician Review Nursing Documentation Reviewed: Yes Family/Social History: Unknown Family HX Smoking Status: Former Smoker Hx Alcohol Use: Yes (ALCOHOLIC QUIT) Hx Substance Use: Yes (COCAINE QUIT) Hx Substance Use Treatment: No Allergies/Home Meds Allergies/Adverse Reactions: Allergies No Known Allergies Allergy (Verified 01/30/19 09:18) Home Medications: Home Meds Medication Instructions Recorded Confirmed Verapamil [Calan SR Tab] 180 mg PO DAILY 04/02/12 01/30/19 Digoxin [Lanoxin] 0.25 mg PO DAILY 03/14/17 01/30/19 Enalapril Maleate [Vasotec] 5 mg PO DAILY 03/14/17 01/30/19 Furosemide [Lasix] 20 mg PO DAILY 03/14/17 01/30/19 Potassium Chloride [Klor-Con M20] 20 meq PO DAILY 03/14/17 01/30/19 Warfarin [Coumadin] 5 mg PO DAILY 03/14/17 01/30/19 Review of Systems - Review of Systems Constitutional: absent: Fatigue, Fevers Eyes: absent: Vision Changes ENT: absent: Hearing Changes Respiratory: absent: SOB, Cough Cardiovascular: absent: Chest Pain Gastrointestinal: Abdominal Pain. absent: Nausea, Vomiting Musculoskeletal: Back Pain. absent: Arthralgias, Neck Pain, Joint Swelling, Myalgias Skin: absent: Rash, Pruritis Neurological: absent: Headache, Dizziness Psychiatric: absent: Anxiety, Depression, Suicidal Ideation Physical Exam Vital Signs Reviewed: Yes Temperature: Afebrile Blood Pressure: Normal Pulse: Bradycardic Respiratory Rate: Normal Appearance: Positive for: Well-Appearing, Non-Toxic, Comfortable Pain Distress: Moderate Mental Status: Positive for: Alert and Oriented X 3 - Systems Exam Head: Present: Atraumatic, Normocephalic Pupils: Present: PERRL Extroacular Muscles: Present: EOMI Conjunctiva: Present: Normal Mouth: Present: Moist Mucous Membranes Neck: Present: Normal Range of Motion Respiratory/Chest: Present: Clear to Auscultation, Good Air Exchange. No: Respiratory Distress, Accessory Muscle Use Cardiovascular: Present: Regular Rate and Rhythm, Normal S1, S2. No: Murmurs Abdomen: Present: Tenderness (RLQ), Normal Bowel Sounds. No: Distention, Peritoneal Signs, Rebound, Guarding, McBurney's Point Tender, Rovsing's Sign Present, Scars Back: Present: Normal Inspection, Other (Thoracic to LS region: no midline tenderness or step off, no cva tenderness, FROM without limitation but pain with lateral movement, sensation intact, motor 5/5, SLR test negative. ). No: CVA Tenderness, Midline Tenderness, Paraspinal Tenderness, Pain with Leg Raise, Decubitus Ulcer Upper Extremity: Present: Normal Inspection, Normal ROM, NORMAL PULSES, Neurovascularly Intact. No: Cyanosis, Edema, Tenderness, Swelling, Deformity, Norm 2-Pt Discrimination Lower Extremity: Present: Normal Inspection. No: Edema Neurological: Present: GCS=15, CN II-XII Intact, Speech Normal, Motor Func G rossly Intact, Normal Cerebellar Funct, Gait Normal, Memory Normal Skin: Present: Warm, Dry, Normal Color. No: Rashes Psychiatric: Present: Alert, Oriented x 3, Normal Insight, Normal Concentration Medical Decision Making ED Course and Treatment: 01/30/19 10:04 -Labs -CT abdomen and pelvis -IVF/morphine -Observe and reassess 01/30/19 14:24 -Labs show no acute findings -INR 2.93 -UA show no UTI but there is hematuria -CT abdomen and pelvis: There fluid and fecal material in the ascending colon. There is mild distention of the remainder of the colon. This could be secondary to colonic ileus. The small bowel is normal in caliber. No evidence of appendicitis. -Pt. is still in pain, uncomfortable, discussed and spoke to Dr. Rogers about labs/radiology and the patient's pain level, she recommend observation and general surgery consult Dr. Lim. -Pt. agreed to be admitted for observation - RAD Interpretation Radiology Orders: -CT abdomen and pelvis: Date of service: 01/30/2019 PROCEDURE: CT Abdomen and Pelvis with contrast HISTORY: rt. lower back and rt. LQ pain x 4 days COMPARISON: 12/12/2018 TECHNIQUE: Contrast dose: 100 cc of Omni 350 Radiation dose: Total exam DLP = 212.65 mGy-cm. This CT exam was performed using one or more of the following dose reduction techniques: Automated exposure control, adjustment of the mA and/or kV according to patient size, and/or use of iterative reconstruction technique. FINDINGS: LOWER THORAX: Unremarkable. LIVER: Unremarkable. No gross lesion or ductal dilatation. GALLBLADDER AND BILE DUCTS: Unremarkable. PANCREAS: Unremarkable. No gross lesion or ductal dilatation. SPLEEN: Unremarkable. ADRENALS: Unremarkable. No mass. KIDNEYS AND URETERS: Unremarkable. No hydronephrosis. No solid mass. VASCULATURE: Unremarkable. No aortic aneurysm. Aortic and iliac calcification BOWEL: There fluid and fecal material in the ascending colon. There is mild distention of the remainder of the colon. This could be secondary to colonic ileus. The small bowel is normal in caliber. APPENDIX: Normal appendix. PERITONEUM: Unremarkable. No free fluid. No free air. LYMPH NODES: Unremarkable. No enlarged lymph nodes. BLADDER: Unremarkable. REPRODUCTIVE: Unremarkable. BONES: No acute fracture. OTHER FINDINGS: None. IMPRESSION: There fluid and fecal material in the ascending colon. There is mild distention of the remainder of the colon. This could be secondary to colonic ileus. The small bowel is normal in caliber. No evidence of appendicitis. Optimization Specialist: Radiologist - PA / THERAPEUTIC SALES SPECIALIST / Resident Statement MD/DO has reviewed & agrees with the documentation as recorded. Disposition/Present on Arrival - Present on Arrival Any Indicators Present on Arrival: No History of DVT/PE: No History of Uncontrolled Diabetes: No Urinary Catheter: No History of Decub. Ulcer: No History Surgical Site Infection Following: None - Disposition Have Diagnosis and Disposition been Completed?: Yes Diagnosis: Abdominal pain, Ileus, unspecified Disposition: HOSPITALIZED Disposition Time: 14:26 Patient Plan: Admission, Observation Condition: STABLE Forms: [employer] (Arabic)
[2019-01-30] MEDS ORDERED: Morphine 4 mg/ml ISec IVP STA (09:58)
[2019-01-30] MEDS ORDERED: Sodium Chloride 0.9% 500 ML IV STA (10:00)
[2019-01-30 10:51] LABS: BASO # 0.01 K/mm3 (0.0-2.0); BASO % 0.1 % (0.0-3.0); EOS # 0.2 (0.0-0.7); EOS % 2.2 % (1.5-5.0); HEMOGLOBIN 12.5 g/dL (14.0-18.0); LYMPH # 1.1 (1.2-3.4); LYMPH % 15.8 % (22.0-35.0); MEAN CELL VOLUME 96.7 fl (80.0-105.0); MEAN CORPUSCULAR HEMOGLOBIN 32.1 pg (25.0-35.0); MEAN CORPUSCULAR HGB CONC 33.2 g/dl (31.0-37.0); MEAN PLATELET VOLUME 9.3 fl (7.0-11.0); MONO % 13.7 % (1.0-6.0); RBC 3.9 10^6/uL (3.5-6.1)
[2019-01-30 10:54] LABS: PH,URINE 5.5 (4.7-8.0); URINE APPEARANCE CLEAR (CLEAR); URINE BILIRUBIN NEGATIVE (NEGATIVE); URINE BLOOD MODERATE (NEGATIVE); URINE COLOR YELLOW (YELLOW); URINE GLUCOSE (UA) NEGATIVE (NEGATIVE); URINE LEUKOCYTE ESTERASE NEGATIVE Leu/uL (NEGATIVE); URINE PROTEIN NEGATIVE mg/dL (<30 mg/dL); URINE UROBILINOGEN 0.2 E.U./dL (<1 E.U./dL)
[2019-01-30 10:58] LABS: INR 2.93; PARTIAL THROMBOPLASTIN TIME 51.5 Seconds (26.9-38.3); PROTHROMBIN TIME 33.1 SECONDS (9.4-12.5)
[2019-01-30 11:04] LABS: ALB/GLOB RATIO 1.2 (1.1-1.8); ALBUMIN 4.1 g/dL (3.0-4.8); ALT/SGPT 14 U/L (7-56); AST/SGOT 38 U/L (17-59); BLOOD UREA NITROGEN 13 mg/dL (7-21); CALCIUM 9.3 mg/dL (8.4-10.5); GFR NON-AFRICAN AMERICAN > 60
[2019-01-30 11:05] LABS: URINE BACTERIA FEW /hpf; URINE RBC 20 - 25 /hpf (0-2)
[2019-01-30] MEDS ORDERED: Iohexol 350 MG/100 ML VIAL ONE (11:13)
--- NOTE | 2019-01-30 12:24 | CT ---
Date of service: 01/30/2019 PROCEDURE: CT Abdomen and Pelvis with contrast HISTORY: rt. lower back and rt. LQ pain x 4 days COMPARISON: 12/12/2018 TECHNIQUE: Contrast dose: 100 cc of Omni 350 Radiation dose: Total exam DLP = 212.65 mGy-cm. This CT exam was performed using one or more of the following dose reduction techniques: Automated exposure control, adjustment of the mA and/or kV according to patient size, and/or use of iterative reconstruction technique. FINDINGS: LOWER THORAX: Unremarkable. LIVER: Unremarkable. No gross lesion or ductal dilatation. GALLBLADDER AND BILE DUCTS: Unremarkable. PANCREAS: Unremarkable. No gross lesion or ductal dilatation. SPLEEN: Unremarkable. ADRENALS: Unremarkable. No mass. KIDNEYS AND URETERS: Unremarkable. No hydronephrosis. No solid mass. VASCULATURE: Unremarkable. No aortic aneurysm. Aortic and iliac calcification BOWEL: There fluid and fecal material in the ascending colon. There is mild distention of the remainder of the colon. This could be secondary to colonic ileus. The small bowel is normal in caliber. APPENDIX: Normal appendix. PERITONEUM: Unremarkable. No free fluid. No free air. LYMPH NODES: Unremarkable. No enlarged lymph nodes. BLADDER: Unremarkable. REPRODUCTIVE: Unremarkable. BONES: No acute fracture. OTHER FINDINGS: None. IMPRESSION: There fluid and fecal material in the ascending colon. There is mild distention of the remainder of the colon. This could be secondary to colonic ileus. The small bowel is normal in caliber. No evidence of appendicitis.
[2019-01-30] MEDS: Sodium Chloride 0.9% 1,000 ML IV SCH (15:05)
--- NOTE | 2019-01-30 15:25 | CP.PCM.CON ---
<Florence Underwood - Last Filed: 01/30/19 17:48> History of Present Illness - History of Present Illness History of Present Illness: General Surgery Dr. Wiseman 63 y/o M w/ PMHx CHF, CAD, Afib, presents to the ED c/o abd pain. Pt admits to abd pain that started Sunday. Pt admits to similar pain in the past but never this severe. Pt reports pain starts in his low back and radiates around to his RLQ and right groin. In the past, pain was relieved w/ passing gas, however, pt reports recent constipation/obstipation w/ decreased flatus. Pain currently made worse and relieved w/ certain movements. Pain is intermittent and described as sharp, tightening, twisting pain. Pt also admits to recent increased urgency and frequency of urination but denies F/C, N/V, reflux, anorexia, diarrhea, dysuria. PMHx: see above, Hep C, anemia, polysubstance abuse, pancreatitis Meds: reviewed in chart NKDA PSHx: CAGB, heart valve replacement x2, RLE abdias SHx: prior cocaine, tobacco, EtOH use FHx: noncontributory Review of Systems - Review of Systems All systems: reviewed and no additional remarkable complaints except (see HPI) Past Patient History - Infectious Disease Hx of Infectious Diseases: None - Tetanus Immunizations Tetanus Immunization: Unknown - Past Social History Smoking Status: Former Smoker - CARDIAC Hx Cardiac Disorders: Yes Hx Congestive Heart Failure: Yes - PULMONARY Hx Respiratory Disorders: Yes Other/Comment: ex smoker - NEUROLOGICAL Hx Paralysis: No - HEENT Hx HEENT Problems: (WEARS RX GLASSES) - RENAL Hx Chronic Kidney Disease: No - ENDOCRINE/METABOLIC Hx Endocrine Disorders: No - HEMATOLOGICAL/ONCOLOGICAL Hx Blood Disorders: Yes Hx Blood Transfusions: Yes Hx Blood Transfusion Reaction: Yes Hx Cancer: Yes Hx Hepatitis C: Yes - INTEGUMENTARY Hx Dermatological Problems: No - MUSCULOSKELETAL/RHEUMATOLOGICAL Hx Musculoskeletal Disorders: Yes (ANKLE SPRAIN) Hx Fractures: Yes - GASTROINTESTINAL Hx Gastrointestinal Disorders: Yes Hx Pancreatitis: Yes - GENITOURINARY/GYNECOLOGICAL Hx Genitourinary Disorders: No - PSYCHIATRIC Hx Psychophysiologic Disorder: No Hx Substance Use: Yes (COCAINE QUIT) - SURGICAL HISTORY Hx Coronary Artery Bypass Graft: Yes Hx Orthopedic Surgery: Yes Hx Valve Replacement: Yes Other/Comment: Abdias placed to Rt. lower extremity/foot. - ANESTHESIA Hx Anesthesia Reactions: No Hx Malignant Hyperthermia: No Meds Allergies/Adverse Reactions: Allergies Allergy/AdvReac Type Severity Reaction Status Date / Time No Known Allergies Allergy Verified 01/30/19 09:18 - Medications Medications: Current Medications Sodium Chloride (Sodium Chloride 0.9%) 1,000 mls @ 100 mls/hr IV .Q10H [facility] Last Admin: 01/30/19 15:05 Dose: 100 mls/hr Physical Exam - Constitutional Appears: Non-toxic, No Acute Distress - Head Exam Head Exam: NORMAL INSPECTION - Eye Exam Eye Exam: Normal appearance - ENT Exam ENT Exam: Mucous Membranes Moist - Respiratory Exam Respiratory Exam: NORMAL BREATHING PATTERN. absent: Accessory Muscle Use, Respiratory Distress - Cardiovascular Exam Cardiovascular Exam: absent: Bradycardia, Tachycardia - GI/Abdominal Exam GI & Abdominal Exam: Soft, Tenderness (minimal TTP B/L lower ). absent: Distended, Firm, Guarding, Hernia, Rebound, Rigid - Extremities Exam Extremities exam: Positive for: normal inspection - Back Exam Back exam: paraspinal tenderness (Right). absent: CVA tenderness (L), CVA tenderness (R) - Neurological Exam Neurological exam: Alert, Oriented x3 - Psychiatric Exam Psychiatric exam: Normal Affect, Normal Mood - Skin Skin Exam: Dry, Intact, Normal Color, Warm Results - Vital Signs Recent Vital Signs: Last Vital Signs Temp 98.5 F 01/30/19 09:49 Pulse 59 L 01/30/19 14:53 Resp 18 01/30/19 14:53 BP 130/64 01/30/19 14:53 Pulse Ox 100 01/30/19 14:53 - Labs Result Diagrams: 01/30/19 10:10 01/30/19 10:10 Labs: Laboratory Results - last 24 hr 01/30/19 01/30/19 01/30/19 10:10 10:10 10:10 WBC 7.0 RBC 3.90 Hgb 12.5 L Hct 37.7 L MCV 96.7 MCH 32.1 MCHC 33.2 RDW 13.0 Plt Count 233 MPV 9.3 Neut % (Auto) 68.2 H Lymph % (Auto) 15.8 L Sanborn % (Auto) 13.7 H Eos % (Auto) 2.2 Baso % (Auto) 0.1 Lymph # (Auto) 1.1 L Sanborn # (Auto) 1.0 H Eos # (Auto) 0.2 Baso # (Auto) 0.01 Absolute Neuts (auto) 4.74 PT 33.1 H INR 2.93 APTT 51.5 H Sodium Potassium Chloride Carbon Dioxide Anion Gap BUN Creatinine Est GFR ( Amer) Est GFR (Non-Af Amer) Random Glucose Calcium Total Bilirubin AST ALT Alkaline Phosphatase Total Protein Albumin Globulin Albumin/Globulin Ratio Urine Color Yellow Urine Appearance Clear Urine pH 5.5 Ur Specific Barnhart 1.020 Urine Protein Negative Urine Glucose (UA) Negative Urine Ketones Negative Urine Blood Moderate H Urine Nitrate Negative Urine Bilirubin Negative Urine Urobilinogen 0.2 Ur Leukocyte Esterase Negative Urine RBC 20 - 25 H Urine WBC 1 - 3 Ur Epithelial Cells None Urine Bacteria Few 01/30/19 10:10 WBC RBC Hgb Hct MCV MCH MCHC RDW Plt Count MPV Neut % (Auto) Lymph % (Auto) Sanborn % (Auto) Eos % (Auto) Baso % (Auto) Lymph # (Auto) Sanborn # (Auto) Eos # (Auto) Baso # (Auto) Absolute Neuts (auto) PT INR APTT Sodium 139 Potassium 4.4 Chloride 101 Carbon Dioxide 34 H Anion Gap 9 L BUN 13 Creatinine 0.7 L Est GFR ( Amer) > 60 Est GFR (Non-Af Amer) > 60 Random Glucose 73 Calcium 9.3 Total Bilirubin 0.7 AST 38 ALT 14 Alkaline Phosphatase 48 Total Protein 7.5 Albumin 4.1 Globulin 3.4 Albumin/Globulin Ratio 1.2 Urine Color Urine Appearance Urine pH Ur Specific Barnhart Urine Protein Urine Glucose (UA) Urine Ketones Urine Blood Urine Nitrate Urine Bilirubin Urine Urobilinogen Ur Leukocyte Esterase Urine RBC Urine WBC Ur Epithelial Cells Urine Bacteria - Imaging and Cardiology CT scan - abdomen Status: Image reviewed by me, Report reviewed by me Assessment & Plan - Assessment and Plan (Free Text) Assessment: 63 y/o M w/ abd discomfort likely related to constipation though also concerning for nephrolithaisis Plan: - advance diet as tolerated - dulcolax LA - PO Miralax - monitor bowel fxn - consider stool cultures if concerned for infections etiology - UA w/ micro for potential stones - pt sees Katerine/Tony for urology PPx --> consider consultation if kidney stones - pain management - PT/OT for back pain Pt discussed w/ Dr. Bowen Underwood PGY3 <Tyolr Wiseman - Last Filed: 02/02/19 16:15> Results - Vital Signs Recent Vital Signs: Last Vital Signs Temp 98.1 F 02/01/19 06:00 Pulse 57 L 02/01/19 06:00 Resp 18 02/01/19 06:00 BP 130/69 02/01/19 06:00 Pulse Ox 97 02/01/19 06:00 - Labs Result Diagrams: 01/31/19 07:00 01/31/19 07:00 Assessment & Plan - Assessment and Plan (Free Text) Plan: Dx Abd pain constipation 2ndry to L2 Radiculopathy Coumadin prevents LESI Epidural/Cardiac valve prevents MRI Rx SSE/MgCitrate-progress diet/No surgery This consult done under my direct supervision Eli Wiseman MD FACS
[2019-01-30] MEDS ORDERED: HYDROmorphone 1 mg/ml ISec IVP PRN (17:45)
[2019-01-30] MEDS ORDERED: Dextrose 5%/0.9% NS 1,000 ML IV SCH (18:00)
[2019-01-30] MEDS ORDERED: POLYETHYLENE GLYCOL 3350 17 GM/Dose PACKET PO ONE (18:03)
[2019-01-30] MEDS: HYDROmorphone 0.5 mg/0.5 ml ISec IVP PRN ×2 (18:21→23:18)
[2019-01-30] MEDS: Dextrose 5%/0.9% NS 1,000 ML IV SCH (18:57)
--- NOTE | 2019-01-31 01:50 | HP ---
DATE OF EXAM: 01/30/2019 HISTORY OF PRESENT ILLNESS: The patient is 63 years old, came to emergency room because of increasing abdominal pain. Pain started around Sunday, but it has gotten worse since then. Initially started in the lower back, then started to radiate towards his right lower quadrant area. Pain is sharp, intermittent, gets worse with certain movements, but did not have any nausea or vomiting. No fever, no chills. PAST MEDICAL HISTORY: Significant for; 1. Mitral valve replacement twice and he has mechanical valve, for that reason he is on anticoagulant. 2. History of hepatitis C. 3. History of pancreatitis in the past. 4. Chronic degenerative disc disease on oral narcotics. SOCIAL HISTORY: He is single. He used to use illicit drugs in the past, but quit many many years ago, since he had heart surgeries. ALLERGIES: NOT ALLERGIC TO ANY MEDICATION. MEDICATION AT HOME: He is on Enalapril 5 mg daily, digoxin 0.25 mg daily, clonidine 5 mg daily, Verapamil 180 mg daily, potassium and Lasix. PHYSICAL EXAMINATION GENERAL: He is awake and alert, able to communicate. VITAL SIGNS: He is afebrile. Pulse 59, respiration 18, blood pressure 130/64. LUNGS: Bilateral fair airflow. No rhonchi or crackle. HEART: S1, S2 audible. ABDOMEN: Slightly distended, complaint of pain upon palpation, does have a discomfort in the right lower quadrant area. NEUROLOGIC: He is awake and alert, able to communicate. LABORATORY DATA: WBC 7, hemoglobin 12.5, hematocrit 37, platelets of 33. PT 33.1, INR 2.93. Chemistry; sodium 139, potassium 4.4, chloride 101, CO2 of 34, BUN 13, creatinine 0.7, blood sugar of 73. Urine shows moderate blood, rbc's 20 to 23, wbc's 1 to 3, Had CT scan of the abdomen and pelvis done; shows the patient with fecal matter in the ascending colon, mild distension of the remainder of the colon, possible colonic ileus. No evidence of appendicitis. ASSESSMENT AND PLAN: 1. Abdominal discomfort, etiology unclear. He had probably constipation since he is on narcotics. 2. Hematuria, rule out nephrolithiasis. 3. Status post mitral valve replacement. PLAN: We will give him gentle laxative. Surgical consult has been requested. We will follow up the patient in a.m. Ernesto Rogers MD [facility] # [id number]
[2019-01-31] MEDS: HYDROmorphone 0.5 mg/0.5 ml ISec IVP PRN ×3 (04:46→21:16)
[2019-01-31] MEDS: Dextrose 5%/0.9% NS 1,000 ML IV SCH ×2 (05:34→17:14)
[2019-01-31 07:24] LABS: BASO # 0.01 K/mm3 (0.0-2.0); BASO % 0.2 % (0.0-3.0); EOS # 0.2 (0.0-0.7); EOS % 3.2 % (1.5-5.0); HEMOGLOBIN 12.4 g/dL (14.0-18.0); LYMPH # 1.1 (1.2-3.4); LYMPH % 17.3 % (22.0-35.0); MEAN CELL VOLUME 96.4 fl (80.0-105.0); MEAN CORPUSCULAR HGB CONC 33.2 g/dl (31.0-37.0); MEAN PLATELET VOLUME 8.9 fl (7.0-11.0); MONO # 1.1 (0.1-0.6); MONO % 17.1 % (1.0-6.0); RBC 3.87 10^6/uL (3.5-6.1); RED CELL DISTRIBUTION WIDTH 12.8 % (11.5-14.5); WHITE BLOOD COUNT 6.5 10^3/uL (4.5-11.0)
[2019-01-31 07:41] LABS: PROTHROMBIN TIME 41.6 SECONDS (9.4-12.5)
[2019-01-31 07:44] LABS: INR 3.68
[2019-01-31 07:45] LABS: ALB/GLOB RATIO 1.1 (1.1-1.8); ALBUMIN 3.8 g/dL (3.0-4.8); ALT/SGPT 18 U/L (7-56); AST/SGOT 35 U/L (17-59); BLOOD UREA NITROGEN 10 mg/dL (7-21); CALCIUM 9.1 mg/dL (8.4-10.5); GFR NON-AFRICAN AMERICAN > 60
[2019-01-31] MEDS ORDERED: Magnesium Citrate Oral SOL (300 ml) PO ONE (08:14)
--- NOTE | 2019-01-31 09:05 | CP.PCM.PN ---
Subjective - Date & Time of Evaluation Date of Evaluation: 01/31/19 Time of Evaluation: 06:45 - Subjective Subjective: General Surgery Progress Note for Dr. Bowen Cortez, PGY1 Patient seen and examined at bedside this morning. No acute events reported overnight. Patient denies any bowel movement overnight. Endorses abdominal pain is worse with movement. Denies fevers, nausea, vomiting and headaches. Objective - Vital Signs/Intake and Output Vital Signs (last 24 hours): Temp Pulse Resp BP Pulse Ox 98.2 F 64 18 102/66 98 01/31/19 06:00 01/31/19 06:00 01/31/19 06:00 01/31/19 06:00 01/31/19 06:00 Intake and Output: 01/31/19 01/31/19 06:59 18:59 Intake Total 180 Balance 180 - Medications Medications: Current Medications Digoxin (Lanoxin) 0.25 mg PO DAILY [facility] Hydromorphone HCl (Dilaudid) 0.5 mg IVP Q4H PRN PRN Reason: Pain, moderate (4-7) Last Admin: 01/31/19 04:46 Dose: 0.5 mg Sodium Chloride (Sodium Chloride 0.9%) 1,000 mls @ 100 mls/hr IV .Q10H [facility] Last Admin: 01/30/19 15:05 Dose: 100 mls/hr Dextrose/Sodium Chloride (Dextrose 5%/0.9% Ns 1000 Ml) 1,000 mls @ 100 mls/hr IV .Q10H [facility] Last Admin: 01/31/19 05:34 Dose: 100 mls/hr Ketorolac Tromethamine (Toradol) 30 mg IVP Q6 [facility] Stop: 02/05/19 18:07 Lisinopril (Zestril) 5 mg PO DAILY [facility] Ondansetron HCl (Zofran Inj) 4 mg IVP Q6H PRN PRN Reason: Nausea/Vomiting Polyethylene Glycol (Miralax) 17 gm PO DAILY [facility] Verapamil HCl (Calan Sr Tab) 180 mg PO DAILY [facility] Warfarin Sodium (Coumadin) 5 mg PO 1800 [facility]; Protocol - Labs Labs: 01/31/19 07:00 01/31/19 07:00 PT 41.6 SECONDS (9.4-12.5) H 01/31/19 07:00 INR 3.68 H* 01/31/19 07:00 APTT 51.5 Seconds (26.9-38.3) H 01/30/19 10:10 Physical Exam - Constitutional Appears: Non-toxic, No Acute Distress - Head Exam Head Exam: NORMAL INSPECTION - Eye Exam Eye Exam: Normal appearance - ENT Exam ENT Exam: Mucous Membranes Moist - Respiratory Exam Respiratory Exam: NORMAL BREATHING PATTERN. absent: Accessory Muscle Use, Respiratory Distress - Cardiovascular Exam Cardiovascular Exam: absent: Tachycardia - GI/Abdominal Exam GI & Abdominal Exam: Soft, tenderness with deep palpation in B/L lower quadrant absent: Distended, Firm, Guarding, Hernia, Rebound, Rigid - Extremities Exam Extremities exam: Positive for: normal inspection, DP +2 B/L - Back Exam Back exam: right paraspinal tenderness. absent: CVA tenderness (L), CVA tenderness (R) - Neurological Exam Neurological exam: Alert, Oriented x3 - Skin Skin Exam: Dry, Intact, Normal Color Assessment and Plan - Assessment and Plan (Free Text) Assessment: 63 year old male with abdominal discomfort likely related to constipation though also concerning for nephrolithaisis Plan: - recommend spinal imaging as symptoms appear radicular - given mag citrate for constipation - heart healthy diet - continue miralax - monitor bowel fxn - consider stool cultures if concerned for infections etiology - consider Dr. Jimenez/Katerine consultation if kidney stones are concern - pain control - PT/OT for back pain - further recommendations as per Dr. Wiseman
[2019-01-31] MEDS: Digoxin 250 mcg (0.25 mg) Tab PO SCH (09:18)
[2019-01-31] MEDS: POLYETHYLENE GLYCOL 3350 17 GM/Dose PACKET PO SCH (09:18)
[2019-01-31] MEDS: Verapamil 180 mg ER Tab PO SCH (09:18)
[2019-01-31] MEDS ORDERED: Lidocaine 2% PF (10 ml) Amp INJ ONE (09:22)
--- NOTE | 2019-01-31 09:25 | CP.PCM.PCO ---
Physician Communication Note - Physician Communication Note Physician Communication Note: [id number] pain-constipation:Epidural contraindicated (Coumadin)
[2019-01-31] MEDS ORDERED: Non Formulary Medication (Enalapril Maleate [Vasotec] 5 MG) PO SCH (10:00)
[2019-01-31] MEDS: Sodium Chloride 0.9% 1,000 ML IV SCH (12:01)
--- NOTE | 2019-01-31 21:42 | PN ---
DATE: 01/31/2019 SUBJECTIVE: The patient is a 63-year-old black male, came to emergency room. He states he had barbecue chicken, and Sunday morning when he woke up, he fell on his back. Since then, he has been having back pain. He thought it will go away but slowly got worse. Yesterday, he was having some abdominal discomfort, so he came to ER. CT scan showed ileus, but the patient is on narcotics. He takes Percocet 10/325 mg twice a day for his back pain. He was evaluated by Surgery team and currently on laxatives. He did have small bowel movement but still has some abdominal discomfort. PHYSICAL EXAMINATION: VITAL SIGNS: Afebrile. Pulse 66, respirations 18, blood pressure 139/66. LUNGS: Bilateral good airflow. No rhonchi or crackle. HEART: S1, S2 audible. ABDOMEN: Soft. Slight left-sided lower quadrant discomfort. No rebound. No guarding. NEUROLOGIC: He is awake and alert. Able to communicate. LABORATORY DATA: WBC 6.5, hemoglobin 12.4, hematocrit 37.3, platelets 229. PT 41.6, INR 3.68. Chemistry; sodium 138, potassium 4.2, chloride 101, CO2 of 35, BUN 10, creatinine of 0.7, blood sugar of 92. Urine shows moderate blood and 20 to 25 wbc's. ASSESSMENT: 1. Degenerative disk disease. 2. Ileus. 3. Constipation secondary to narcotics. PLAN: The plan is we will give one dose of Relistor. Continue on MiraLax. Hold Coumadin for today. Continue IV fluids. We will reevaluate the patient in a.m. Ernesto Rogers MD
[2019-01-31 23:02] VITALS: RESP 18
[2019-02-01] MEDS: Dextrose 5%/0.9% NS 1,000 ML IV SCH (02:00)
[2019-02-01] MEDS: HYDROmorphone 0.5 mg/0.5 ml ISec IVP PRN ×2 (04:42→09:17)
[2019-02-01 07:40] LABS: INR 3.09; PROTHROMBIN TIME 34.9 SECONDS (9.4-12.5)
--- NOTE | 2019-02-01 08:41 | CP.PCM.PN ---
Subjective - Date & Time of Evaluation Date of Evaluation: 02/01/19 Time of Evaluation: 08:40 - Subjective Subjective: General Surgery Dr. Wiseman Pt seen and examined @bedside. No acute events overnight. Pt still c/o back pain, worse w/ movement. Pt reports 2BM yesterday. denies F/C, N/V. tolerating diet. Objective - Vital Signs/Intake and Output Vital Signs (last 24 hours): Temp Pulse Resp BP Pulse Ox 98.5 F 55 L 18 120/66 98 01/31/19 22:00 01/31/19 22:00 01/31/19 22:00 01/31/19 22:00 01/31/19 22:00 Intake and Output: 02/01/19 02/01/19 06:59 18:59 Intake Total 540 Balance 540 - Medications Medications: Current Medications Digoxin (Lanoxin) 0.25 mg PO DAILY [facility] Last Admin: 01/31/19 09:18 Dose: 0.25 mg Hydromorphone HCl (Dilaudid) 0.5 mg IVP Q4H PRN PRN Reason: Pain, moderate (4-7) Last Admin: 02/01/19 04:42 Dose: 0.5 mg Dextrose/Sodium Chloride (Dextrose 5%/0.9% Ns 1000 Ml) 1,000 mls @ 100 mls/hr IV .Q10H [facility] Last Admin: 02/01/19 02:00 Dose: 100 mls/hr Ketorolac Tromethamine (Toradol) 30 mg IVP Q6 [facility] Stop: 02/05/19 18:07 Last Admin: 02/01/19 06:21 Dose: Not Given Lisinopril (Zestril) 5 mg PO DAILY [facility] Last Admin: 01/31/19 09:18 Dose: 5 mg Ondansetron HCl (Zofran Inj) 4 mg IVP Q6H PRN PRN Reason: Nausea/Vomiting Polyethylene Glycol (Miralax) 17 gm PO DAILY [facility] Last Admin: 01/31/19 09:18 Dose: 17 gm Verapamil HCl (Calan Sr Tab) 180 mg PO DAILY [facility] Last Admin: 01/31/19 09:18 Dose: 180 mg Warfarin Sodium (Coumadin) 5 mg PO 1800 [facility]; Protocol - Labs Labs: 01/31/19 07:00 01/31/19 07:00 PT 34.9 SECONDS (9.4-12.5) H 02/01/19 07:00 INR 3.09 02/01/19 07:00 APTT 51.5 Seconds (26.9-38.3) H 01/30/19 10:10 - Constitutional Appears: Non-toxic, No Acute Distress - Head Exam Head Exam: NORMAL INSPECTION - Eye Exam Eye Exam: Normal appearance - ENT Exam ENT Exam: Mucous Membranes Moist - Respiratory Exam Respiratory Exam: NORMAL BREATHING PATTERN. absent: Accessory Muscle Use, Respiratory Distress - Cardiovascular Exam Cardiovascular Exam: absent: Bradycardia, Tachycardia - GI/Abdominal Exam GI & Abdominal Exam: Soft. absent: Distended, Firm, Guarding, Rigid, Tenderness, Rebound - Extremities Exam Extremities Exam: Normal Inspection - Neurological Exam Neurological Exam: Alert, Awake, Oriented x3 - Psychiatric Exam Psychiatric exam: Normal Affect, Normal Mood - Skin Skin Exam: Dry, Intact, Normal Color, Warm Assessment and Plan - Assessment and Plan (Free Text) Assessment: 63 y/o M w/ abd discomfort likely related to constipation, improved, with continued back pain, concerning for radiculopathy Plan: - recommend spinal imaging as symptoms appear radicular in nature - cont HHD - cont bowel regimen - monitor bowel fxn - cont pain management, recommend non-opioids considering constipation - PT/OT for back pain - further recommendations as per Dr. Bowen Underwood PGY3
[2019-02-01] MEDS: Digoxin 250 mcg (0.25 mg) Tab PO SCH (09:17)
[2019-02-01] MEDS: Verapamil 180 mg ER Tab PO SCH (09:17)
[2019-02-01] MEDS: POLYETHYLENE GLYCOL 3350 17 GM/Dose PACKET PO SCH (09:17)
[2019-02-01 09:18] VITALS: PULSE 62
[2019-02-01 09:53] VITALS: BP 130/69; PULSE 57; TEMP 98.1; O2SAT 97
[2019-02-01] MEDS ORDERED: Oxycodone/Acetaminophen 5/325 mg Tab PO PRN (11:21)
--- NOTE | 2019-02-02 02:00 | DS ---
HOSPITAL COURSE: The patient is 63 years old, seen and examined, who was admitted because of back pain radiating to the belly, complained of abdominal discomfort and bloating. He had multiple oral laxatives given. He had bowel movement, especially after magnesium citrate. He was given trigger point injection. His lumbosacral area with some relief, still complained of back pain, did have bowel movement, eating and tolerating. PHYSICAL EXAMINATION: VITAL SIGNS: He is afebrile, pulse 57, respiration 18, and blood pressure 130/69. LUNGS: Bilateral fair airflow. No rhonchi or crackle. HEART: S1 and S2 audible. ABDOMEN: Soft and nontender. No rebound. No guarding. NEUROLOGIC: The patient is awake and alert; able to communicate. LABORATORY DATA: WBC 6.5, hemoglobin 12.4, and hematocrit 37. ASSESSMENT: 1. Status post ileus. 2. Status post constipation. 3. Lumbosacral radiculopathy. 4. History of mitral valve replacement, on anticoagulant. DISCHARGE PLAN: The patient is currently stable. He is tolerating food. Today, his PT is 3.09. He will resume his medication. He was given prescription of Percocet that he usually uses at home. He was given Flexeril 10 mg three times a day. I will follow up in office. Ernesto Rogers MD
== END 2019-02-01 15:22 | disposition home or self-care (01) ==
LOC: ED 09:09 → ERH 14:20 → 5RNO 16:43 → 5RSO 18:10 → 5RNO 18:21
PROVIDERS: ADMIT Internal Medicine; ATTEND Internal Medicine
DX: K56.7 Ileus, unspecified (principal); K59.03 Drug induced constipation; M54.17 Radiculopathy, lumbosacral region; T40.605A Adverse effect of unspecified narcotics, initial encounter; Z95.2 Presence of prosthetic heart valve; Z95.1 Presence of aortocoronary bypass graft; E78.5 Hyperlipidemia, unspecified; I11.0 Hypertensive heart disease with heart failure; I25.10 Atherosclerotic heart disease of native coronary artery without angina pectoris; I50.9 Heart failure, unspecified; I48.91 Unspecified atrial fibrillation; Z79.01 Long term (current) use of anticoagulants; Z87.891 Personal history of nicotine dependence; Z86.19 Personal history of other infectious and parasitic diseases
CPT/HCPCS: 36415; 74177; 80053; 81001; 85025; 85610; 85730; 96374; 99284; G0378; J1170; J1885; J2212; J2270; J7030; J7040; J7042; Q9967